=== PATIENT | female | born 1965 | race Caucasian/White ===

== ENCOUNTER 2023-12-05 22:48 | Emergency (ER) | payer OTHER, SELFPAY ==
[2023-12-05 22:51] VITALS: BP 170/88; PULSE 96; TEMP 36.5; O2SAT 98; BMI 27.4
--- NOTE | 2023-12-05 22:56 | CT_ITS ---
The [address] [address] Patient Name: MYNOR MAYA MRN: [id number] date: 1965 Sex: F Assigned Patient Location: ER Current Patient Location: ER Accession/Order Number: [id number] Exam Date: 12/05/2023 23:08 Report Date: 12/05/2023 23:42 At the request of: CHE CERDA Procedure: CT head/brain wo con INDICATION: 58 years old; Female. Closed head trauma status post fall. TECHNIQUE: CT Head (ax/cor/sag reformats). Ionizing radiation dose reduced via iterative reconstruction/FBP blend and body size kV/mA adjustment. Comparison: None FINDINGS: POSTOPERATIVE CHANGES: None. BRAIN PARENCHYMA: No intraparenchymal or extra-axial hemorrhage. No mass effect. No midline shift or herniation. Normal mejía/white differentiation. VENTRICLES/EXTRA-AXIAL SPACES: Normal for patient's age. SINUSES/MASTOIDS: The visualized sinuses are clear although the ethmoid and frontal sinuses are hypoplastic. The maxillary sinuses are not completely included. Mastoids and middle ears are clear. MSK: No displaced or depressed calvarial fracture. There is extracranial soft tissue swelling in the supraorbital/frontal region on the right. No subjacent calvarial deformity is seen. OTHER: No hyperdense intraluminal thrombus is present. CT/CT head/brain wo con IMPRESSION: 1. No acute intracranial abnormality. No hemorrhage or mass effect. 2. Extracranial soft tissue swelling in the supraorbital/frontal region on the right. No subjacent calvarial fracture is present. Electronically authenticated by: JUVENTINO FARNSWORTH Date: 12/05/2023 23:42
--- NOTE | 2023-12-05 22:57 | ED.FALL1 ---
HPI HPI - Fall General Chief Complaint: Fall Stated Complaint: Fall Time Seen by Provider: 12/05/23 22:51 Source: patient Mode of arrival: walk-in Limitations: no limitations History of Present Illness HPI Narrative: 58-year-old female presents for an injury to her forehead. She tripped and fell about 4:00 this afternoon and hit the right side of her forehead on concrete. No other injury was sustained. She has not been vomiting and does not have any neck pain. She has had a persistent headache and she came in to get checked. Her last tetanus shot was 11 years ago. Related Data Home Medications ?Medication ?Instructions ?Recorded ?Confirmed gabapentin 100 mg capsule 100 mg PO Q8H 12/05/23 12/05/23 levothyroxine 75 mcg tablet 75 mcg PO DAILY 12/05/23 12/05/23 (Levo-T) Allergies Allergy/AdvReac Type Severity Reaction Status Date / Time No Known Drug Allergies Allergy Verified 12/05/23 22:54 Opioid HPI Opioid Management Most Recent Pain and Opioid Data: No Data to Display Review of Systems ROS Narrative A ten point review of systems is negative except as noted above. Exam Narrative Exam Narrative: Nurses note and vital signs reviewed and patient is not hypoxic. General: The patient appears well and in no apparent distress. Skin: Warm, dry, no pallor noted. There is no rash noted. Head: Normocephalic, abrasions present on her right forehead Eye: Normal conjunctiva, no drainage, EOMI. PERRL Ears, Nose, Mouth, and Throat: oral mucosa is moist. Nares patent. Cardiovascular: Regular Rate and Rhythm Respiratory: Patient is in no distress, no accessory muscle use, lungs are clear to auscultation, no wheezing, rales or rhonchi Back: non-tender GI: Soft and nontender Musculoskeletal: All joints in her extremities have good range of motion Neurological: Awake and alert Psychiatric: Cooperative Constitutional Vital Signs, click to edit/add: Last Vital Signs Temp 97.7 F 12/05/23 22:51 Pulse 96 H 12/05/23 22:51 Resp 18 12/05/23 22:51 BP 170/88 H 12/05/23 22:51 Pulse Ox 98 12/05/23 22:51 O2 Del Method Room Air 12/05/23 22:51 Course Vital Signs Vital signs: Vital Signs Temperature 97.7 F 12/05/23 22:51 Pulse Rate 96 H 12/05/23 22:51 Respiratory Rate 18 12/05/23 22:51 Blood Pressure 170/88 H 12/05/23 22:51 Pulse Oximetry 98 12/05/23 22:51 Oxygen Delivery Method Room Air 12/05/23 22:51 Temperature 97.7 F 12/05/23 22:51 Pulse Rate 96 H 12/05/23 22:51 Respiratory Rate 18 12/05/23 22:51 Blood Pressure 170/88 H 12/05/23 22:51 Pulse Oximetry 98 12/05/23 22:51 Oxygen Delivery Method Room Air 12/05/23 22:51 MDM - Fall MDM Narrative Medical decision making narrative: CT is negative. Tetanus status is updated and she is discharged home. Findings were discussed with the patient. Differential Diagnosis Differential diagnosis: Likely other (Forehead contusion, abrasion, intracranial hemorrhage) Imaging Data CT scan - head: Radiologist's impression: ITS Impressions Head CT 12/05/23 22:56 IMPRESSION: 1. No acute intracranial abnormality. No hemorrhage or mass effect. 2. Extracranial soft tissue swelling in the supraorbital/frontal region on the right. No subjacent calvarial fracture is present. Electronically authenticated by: JUVENTINO FARNSWORTH Date: 12/05/2023 23:42 Discharge Plan Discharge Stand Alone Forms: Portal Instructions Chief Complaint: Fall Clinical Impression: Forehead contusion Patient Disposition: Home, Self-Care Time of Disposition Decision: 23:47 Condition: Good Mode of Transportation: Private Vehicle Prescriptions / Home Meds: No Action gabapentin 100 mg capsule 100 mg PO Q8H levothyroxine [Levo-T] 75 mcg tablet 75 mcg PO DAILY Print Language: Bangladeshi Instructions: Facial Contusion (ED) Referrals: Physician,Non-Staff, MD [Primary Care Provider] - 1 week
[2023-12-05] MEDS: ADACEL DIPH,PERTUSS(ACELL),TET VAC/PF 0.5 ML ADULT SYRINGE IM (23:19)
[2023-12-06 00:02] VITALS: BP 98/58; PULSE 86; O2SAT 98
== END 2023-12-06 00:05 | disposition home or self-care (01) ==
PROVIDERS: Emergency Provider Emergency Medicine
DX: S00.83XA Contusion of other part of head, initial encounter (principal); W19.XXXA Unspecified fall, initial encounter; Z79.899 Other long term (current) drug therapy; Z79.890 Hormone replacement therapy; Z23 Encounter for immunization
CPT/HCPCS: 70450; 90471; 90715; 99284